=== PATIENT | female | born 2000 | race Two or more races ===

== ENCOUNTER 2025-08-11 02:54 | Emergency (ER) | payer BC, SELFPAY ==
[2025-08-11 03:02] VITALS: BP 129/76; PULSE 117; RESP 18; TEMP 37.6; O2SAT 96
[2025-08-11 03:03] VITALS: BMI 34.7
--- NOTE | 2025-08-11 03:22 | EDNOTE_ITS ---
Nausea/Vomit./Diarrhea-RME/HPI General Chief complaint: Nausea/Vomiting/Diarrhea Stated complaint: N/V/D thinks she has food poisoning Time Seen by Provider: 08/11/25 03:12 Arrival date/time: 08/11/25 02:54 25F with no significant PMH presents to ED with several hours of N/V and non- bloody diarrhea. Limitations: no limitations Related Data Previous Rx's ?Medication ?Instructions ?Recorded ondansetron 4 mg disintegrating 4 mg PO Q8H PRN nausea and 08/11/25 tablet vomiting #14 tabs Allergies Allergy/AdvReac Type Severity Reaction Status Date / Time No Known Allergies Allergy Verified 08/11/25 02:57 Review of Systems Review of Systems Systems Reviewed: All systems reviewed, normal except as documented Gastrointestinal Gastrointestinal: Reports as per HPI, Reports diarrhea, Reports nausea and Reports vomiting Past Medical History Social History SMOKING STATUS: Never smoker ED Exam General Limitations: Present no limitations General appearance: Present alert and in no apparent distress Head Head exam: Present atraumatic Neck Neck exam: Present normal inspection, full ROM and trachea midline Chest Chest inspection: Present normal inspection and symmetric chest wall rise Abdominal Exam Abdominal exam: Present soft; Absent tenderness Neurological Exam Neurological exam: Present alert and oriented X3 Psychiatric Psychiatric exam: Present normal affect and normal mood Skin Skin exam: Present warm, dry, intact and normal color Course Quality Measures none Orders Category Date Time Status Dicyclomine [Bentyl] Med 08/11/25 03:18 Discontinued 10 mg PO X1 ONE Ondansetron Odt [Zofran Odt] Med 08/11/25 03:13 Discontinued 4 mg PO X1 ONE Vital Signs Vital signs: Vital Signs Temperature 99.7 F 08/11/25 03:02 Pulse Rate 117 H 08/11/25 03:02 Respiratory Rate 18 08/11/25 03:02 Blood Pressure 129/76 08/11/25 03:02 Pulse Oximetry (%) 96 08/11/25 03:02 Oxygen Delivery Method Room Air 08/11/25 03:02 O2 at 96% on RA and WNLs Nausea/Vomiting/Diarrhea MDM Narrative MDM Narrative:: 25F with no significant PMH presents to ED with several hours of N/V and non- bloody diarrhea. Physical exam reveals no focal ab tenderness. Patient is afebrile, calm, and alert. PO challenge pased. Patient data External records reviewed:: None Clinical information provided by:: patient Social determinants that could affect healthcare access:: none Patient has the following chronic illnesses:: none How is presenting disease/condition affected by chronic disease/condition?: no chronic disease Evaluation data The following diagnostics were reviewed and interpreted by me:: other (specify) (none) Lab and/or radiology exams considered but not ordered:: not ordered Interpretation Summary: n/a Medications / Prescriptions Medications / Prescriptions considered but not ordered:: ordered Medication administrations:: Medication Administration History Discontinued Medications Dicyclomine HCl (Dicyclomine 10 Mg Capsule) 10 mg PO X1 ONE Stop: 08/11/25 03:19 Last Admin: 08/11/25 03:46 Dose: 10 mg Documented By: BERNABE Ondansetron HCl (Ondansetron Odt 4 Mg Tabrap) 4 mg PO X1 ONE; Protocol Stop: 08/11/25 03:14 Last Admin: 08/11/25 03:46 Dose: 4 mg Documented By: BERNABE above Consultations Consultation(s) initiated? (list below): No Diagnosis Nausea Differential Diagnosis: traveler's diarrhea, food poisoning, gastroenteritis, clostridium difficile infection, drug-induced nausea and vomiting and dehydration Most likely diagnosis given after review of the tests above:: gastroenteritis Admission Indicated Admission indicated?: not indicated Admission Request Was there a request for admission?: No Disposition Plan Disposition Plan: Discharge Discharge Attestation Discharge Attestation: The patient and all family members were given an opportunity to ask questions and understood the discharge instructions. Discharge instructions specifically effects, indications for sooner follow up or return to the emergency department, and the expected course of current diagnosis. Patient condition: Stable Discharge Plan Plan Patient Disposition: HOME (Self Care) Discharge Disposition comment: Stable Prescriptions/Referrals Prescriptions/Med Rec: New ondansetron 4 mg tablet,disintegrating 4 mg PO Q8H PRN (Reason: nausea and vomiting) Qty: 14 0RF Problem List Clinical Impression: Gastroenteritis Patient/Caregiver Discharge Instructions Education Materials: ED Diarrhea, Viral (Adult) Additional Instructions: Please follow-up with PCP within 24-48 hours and return immediately if symptoms worsen. Keep hydrated. Advance diet as tolerated. Print Language: Upper Sorbian Stand Alone Forms: Patient Portal Info Letter JERALD/CARLI Supervising Physician JERALD/CARLI Supervising Physician: Dr. Parrish
[2025-08-11] MEDS: ONDANSETRON ODT 4 MG TABRAP PO (03:46)
[2025-08-11] MEDS: DICYCLOMINE 10 MG CAPSULE PO (03:46)
[2025-08-11 04:57] VITALS: BP 127/64; PULSE 113; RESP 18; TEMP 36.9; O2SAT 99
== END 2025-08-11 05:25 | disposition home or self-care (01) ==
LOC: SERX 07:05
PROVIDERS: Emergency Provider Emergency Medicine; PCP Family Medicine
DX: K52.9 Noninfective gastroenteritis and colitis, unspecified (principal)
CPT/HCPCS: 99282; Q0162; A9270